=== PATIENT | female | born 1980 | race African-American/Black ===

== ENCOUNTER 2023-08-23 14:34 | Emergency (ER) | payer BC, SELFPAY ==
--- NOTE | 2023-08-23 14:51 | ED.SKABFB ---
HPI - Skin/Abscess/Foreign Bdy General Chief complaint: Skin/Abscess/Foreign Body Stated complaint: Potential Spider Bite Time Seen by Provider: 08/23/23 14:51 Source: patient Mode of arrival: ambulatory Limitations: no limitations History of Present Illness HPI narrative: 43 yo F presents with c/o pain to R buttock for 2 days. Concerned for spider bite. States she is unable to view painful area but can feel swelling. All systems reviewed and negative except as noted above. Related Data Allergies Allergy/AdvReac Type Severity Reaction Status Date / Time No Known Allergies Allergy Mild Verified 08/23/23 15:04 Review of Systems Review of Systems: CONSTITUTIONAL: Denies fever, chills, or sweats. EYES: Denies visual changes, redness, or discharge. ENT: Denies rhinorrhea, congestion, sore throat, or otalgia. CARDIOVASCULAR: Denies chest pain, palpitations, or edema. RESPIRATORY: Denies cough or dyspnea. GASTROINTESTINAL: Denies abdominal pain, nausea, vomiting, or diarrhea. GENITOURINARY: Denies dysuria or hematuria. SKIN: Reports painful area to right buttock. MUSCULOSKELETAL: Denies back pain, joint pain, or myalgia. NEUROLOGIC: Denies headache, numbness, or weakness. PSYCHIATRIC: Denies anxiety or depression. All other systems reviewed are negative, except as documented in HPI. PMFSH Comments At time of signature, agree with nursing past medical, surgical, social and family history. There is no relevant family history pertinent to the presenting complaint. Exam Narrative: GENERAL: This is a well-nourished, well-developed patient, in no apparent distress. HEAD: normocephalic, atraumatic. EYES: PERRL. Sclera clear/white. Vision is grossly intact. EARS: External ears normal NOSE: External nose normal NECK: Neck supple, non-tender without lymphadenopathy, masses or thyromegaly. CARDIOVASCULAR: Regular rate and rhythm without murmurs, gallops, or rubs. RESPIRATORY: Clear to auscultation. Breath sounds equal bilaterally. No wheezes, rales, or rhonchi. SKIN: warm, Dry, intact, good texture and turgor. Erythematous area to right by approximately 2 x 3 cm with vesicles. Tender on palpation. NEURO: awake, alert, and oriented to person, place and time. There were no obvious focal neurologic abnormalities. EXTREMITIES: No joint tenderness, effusion, or edema noted. Course Course Level of Care: Express Care Visit Vital Signs Vital signs: Vital Signs Temperature 37.2 C 08/23/23 15:06 Pulse Rate 83 08/23/23 15:06 Respiratory Rate 18 08/23/23 15:06 Blood Pressure 108/85 08/23/23 15:06 Pulse Oximetry 100 08/23/23 15:06 Oxygen Delivery Room Air 08/23/23 15:06 Temperature 37.2 C 08/23/23 15:06 Pulse Rate 83 08/23/23 15:06 Respiratory Rate 18 08/23/23 15:06 Blood Pressure 108/85 08/23/23 15:06 Pulse Oximetry 100 08/23/23 15:06 Oxygen Delivery Room Air 08/23/23 15:06 Reviewed MDM - Skin/Abscess/Foreign Bdy MDM Narrative Medical decision making narrative: Patient is aware of diagnosis, understands and agrees to treatment plan. Anticipatory guidance given. Patient agrees to follow-up as directed and is aware of reasons to seek care at the emergency department. Portions of this record may have been created with voice recognition software Differential Diagnosis Differential diagnosis: Likely abscess of skin or subcutaneous tissue, urticaria, herpes zoster, cellulitis, insect bites and contact dermatitis Discharge Plan Discharge Clinical Impression: Shingles Patient Disposition: Home, Self-Care Condition: Stable Instructions: Shingles (ED) Additional Instructions: Take medications as prescribed. See your doctor if symptoms not improving. Prescriptions: New prednisone 20 mg tablet 40 mg PO DAILY 5 Days Qty: 10 0RF famciclovir 500 mg tablet 500 mg PO Q8H 7 Days Qty: 21 0RF lidocaine 5 % ointment 1 applic topical QID PRN
[2023-08-23 15:06] VITALS: BP 108/85; PULSE 83; RESP 18; TEMP 37.2; O2SAT 100
== END 2023-08-23 15:00 | disposition home or self-care (01) ==
PROVIDERS: Emergency Provider Nurse Practitioner Family; PCP Family Medicine
DX: B02.9 Zoster without complications (principal)
CPT/HCPCS: 99213; G0463